=== PATIENT | male | born 1990 | race Caucasian/White ===

== ENCOUNTER 2025-02-08 14:10 | Outpatient (AMB) | payer MEDICAID, SELFPAY ==
--- NOTE | 2025-02-08 14:12 | MHC.OFFVIS ---
Vital Signs 02/08/25 14:17 Height 5 ft 6 in Weight 63.503 kg BMI 22.6 Pulse 68 Pulse Source Pulse Oximeter Pulse Oximetry (%) 99 Oxygen Delivery Method Room Air Intake Visit Reasons: [place] Allergies No Known Allergies (No Known Allergies*) Allergy (Verified 02/08/25 14:20) Physical Exam Vital Signs: Last Vital Signs Pulse 68 02/08/25 14:17 Pulse Ox 99 02/08/25 14:17 Oxygen Delivery Method Room Air 02/08/25 14:17 BMI result Body Mass Index 22.6 Results AMB 14 Panel Urine Drug Screen Urine Marijuana (THC) Positive Last Edit by Mony Carlos CMA on 02/08/25 14:27 Urine Cocaine Positive Last Edit by Mony Carlos CMA on 02/08/25 14:27 Urine Morphine Positive Last Edit by Mony Carlos CMA on 02/08/25 14:27 Urine Methamphetamine Negative Last Edit by Mony Carlos CMA on 02/08/25 14:27 Urine Amphetamine Negative Last Edit by Mony Carlos CMA on 02/08/25 14:27 Urine Benzodiazepine Negative Last Edit by Mony Carlos CMA on 02/08/25 14:27 Urine Barbiturates Negative Last Edit by Mony Carlos CMA on 02/08/25 14:27 Urine Methadone Negative Last Edit by Mony Carlos CMA on 02/08/25 14:27 Urine Buprenorphine Negative Last Edit by Mony Carlos CMA on 02/08/25 14:27 Urine Tricyclic Antidepressant Negative Last Edit by Mony Carlos CMA on 02/08/25 14:27 Urine MDMA Negative Last Edit by Mony Carlos CMA on 02/08/25 14:27 Urine Oxycodone Negative Last Edit by Mony Carlos CMA on 02/08/25 14:27 Urine Phencyclidine Negative Last Edit by Mony Carlos CMA on 02/08/25 14:27 Urine Propoxyphene Negative Last Edit by Mony Carlos CMA on 02/08/25 14:27 Assessment & Plan Assessment & Plan Orders: Orders AMB 14 Panel Urine Drug Screen Today Z51.81 - Encounter for therapeutic drug level monitoring Coding
[2025-02-08 14:17] VITALS: PULSE 68; O2SAT 99; BMI 22.6
--- OUTSIDE RECORDS SUMMARY | 2025-02-08 19:07 | XMS_ITS | Clinical Summary ---
Author Organization [facility] Address [address] [place] [address] Phone Care Team Providers Care Distributor Publications Name Role Phone Unavailable Primary Care Provider Unavailabl e Immunizations Immunization Administration Dates Next Due DTP 12/13/1994, 2,06/12/1991,1990,1990 Hep B, ped/adol 05/25/2003,10/28/2001,07/28/1998 Hib (PRP-T) 06/12/1991,1990,1990 IPV 12/13/1994, 2,06/12/1991,1990,1990 MMR 12/13/1994,06/12/1991 Td (adult) (MBL), 2 Lf tetan us toxoid, PF, adsorbed 10/28/2001 Social History Tobacco Use Types Packs/Day Years Used Date Smoking Tobacco: Never Assessed Sex and Gender Information Value Date Recorded Sex Assigned at Not on file Legal Sex Male 4:21 PM EDT Gender Identity Not on file Sexual Orientation Not on file Plan of Treatment Health Maintenance Due Date Last Done Comments DTaP,Tdap,and Td Vaccines (6 - Tdap) 10/29/2001 10/28/2001, 12/13/1994, 11/13/1991, Additional history exists Varicella Vaccines (1 of 2 - 13+ 2-dose series) 2003 HPV Vaccines (1 - 3-dose SCDM series) 2017 Influenza Vaccines (#1) 2024 COVID-19 Vaccine ( - 2024- season) 2024 HIB Vaccines Completed 06/12/1991, 08/16, 1990 IPV Vaccines Completed 12/13/1994, 10/17, 06/12/1991, Additional history exists MMR Vaccines Completed 12/13/1994, 06/12/1991 Hepatitis B Vaccines Completed 05/25/2003, 10/28/2001, 07/28/1998 Hepatitis A Vaccines Aged Out No long er eligible based on patient's age to complete this topic Men B Vaccine Aged Out No longer elig ible based on patient's age to complete this topic Meningococcal Vaccine Aged Out No maci ana m eligible based on patient's age to complete this topic Pneumococcal Vaccine Aged Out No long er eligible based on patient's age to complete this topic
--- OUTSIDE RECORDS SUMMARY | 2025-02-08 19:07 | XMS_ITS | Encounter Summary ---
Author Organization [facility] Address [address] [place] [phone] Phone Care Team Providers Care Lock Setter Name Role Phone Christine He MD Primary Care Provider [phone] Encounter Details Date Type Department Care Team (Late st Contact Info) Description 11/01/2016 Conversion Encounter [facility] [place] [address] [place] [address] Social History Tobacco Use Types Packs/Day Years Used Date Smoking Tobacco: Never Assessed Sex and Gender Information Value Date Recorded Sex Assigned at Not on file Legal Sex Male 4:21 PM EDT Gender Identity Not on file Sexual Orientation Not on file documented as of this encounter Plan of Treatment Not on file documented as of this encounter Visit Diagnoses Not on filedocumented in this encounter Care Teams Lock Setter Relationship Specialty Start Date End Date Christine He MD [address] [place] [address] PCP - General 10/26/16 06/05/22 documented as of this encounter
== END 2025-02-08 15:06 | disposition home or self-care (01) ==
LOC: HO.HCC 14:10
PROVIDERS: PCP Internal Medicine; Visit Provider Internal Medicine
DX: Z51.81 Encounter for therapeutic drug level monitoring (principal)

== ENCOUNTER → 2025-02-08 14:10 | Outpatient (BNVA) | payer MEDICAID, SELFPAY | PROVIDERS: PCP Internal Medicine; Visit Provider Internal Medicine | DX: F11.20 Opioid dependence, uncomplicated (principal); Z51.81 Encounter for therapeutic drug level monitoring | CPT/HCPCS: 80307; 99202 ==